=== PATIENT | male | born 1945 | race Two or more races ===

== ENCOUNTER 2016-05-13 19:24 | Emergency (ER) | payer OTHER ==
[~2016-05-13] VITALS: Ht 175.3 cm; Wt 106.6 kg
[~2016-05-13 19:24] MED LIST: LEVO500T3 PO; LISI-275 PO
[2016-05-13 20:22] LABS: Basophils # (auto) 0 uL; Basophils % (auto) 0.6 % (0.0-2.0); Eosinophils # (auto) 0.2 uL; Eosinophils % (auto) 2.3 % (0.0-7.0); Hematocrit 39.9 % (41.0-53.0); Hemoglobin 13.1 g/dL (13.5-17.5); Lymphocytes # (auto) 1.6 uL; Lymphocytes % (auto) 22.2 % (10.0-50.0); Mean Corpuscular Hemoglobin 30.6 pg (28.0-32.0); Mean Corpuscular Hgb Conc. 32.9 g/dL (32.0-36.0); Mean Corpuscular Volume 92.8 fL (80.0-100.0); Mean Platelet Volume 9.1 fL (7.4-10.4); Monocytes # (auto) 0.6 uL; Monocytes % (auto) 8.7 % (0.0-12.0); Neutrophils # (auto) 4.7 uL; Neutrophils % (auto) 66.2 % (37.0-80.0); Platelet Count (auto) 262 10^3/uL (140-450); Red Cell Distribution Width 14.2 % (11.6-16.0)
[2016-05-13 20:49] LABS: Albumin 3.5 g/dL (3.4-5.0); Anion Gap 10 (5-15); Aspartate Aminotransferase 10 U/L (15-37); Blood Urea Nitrogen 26 mg/dL (7-18); Calcium 8.6 mg/dL (8.5-10.1); Carbon Dioxide 27 mmol/L (21-32); Chloride 106 mmol/L (98-107); GFR African American 70 mL/min; GFR Non-African American 58 mL/min; Glucose 159 mg/dL (74-106); Potassium 3.8 mmol/L (3.5-5.1); Sodium 143 mmol/L (136-145)
[2016-05-13 20:52] LABS: Alkaline Phosphatase 85 U/L (45-117); Bilirubin, Total 0.3 mg/dL (0.2-1.0); Total Protein 7.6 g/dL (6.4-8.2)
[2016-05-14] MEDS ORDERED: predniSONE 20 MG TAB PO ONE (02:30)
[2016-05-14] MEDS ORDERED: IPRATROPIUM BROM 0.5 MG/2.5ML INH SOL NEB ONE (02:30)
[2016-05-14] MEDS ORDERED: ALBUTEROL SULF 2.5 MG/0.5ML(0.5%) NEB SOLN NEB ONE (02:30)
[2016-05-14 05:00] VITALS: BP 136/63
== END 2016-05-14 05:06 | disposition home or self-care (01) ==
LOC: ER 19:24
DX: J44.9 Chronic obstructive pulmonary disease, unspecified (principal); J45.901 Unspecified asthma with (acute) exacerbation; E11.9 Type 2 diabetes mellitus without complications; E78.5 Hyperlipidemia, unspecified; I10 Essential (primary) hypertension
CPT/HCPCS: 36415; 71020; 80053; 82962; 84484; 85025; 94640; 94761; 99285; J7512

== ENCOUNTER 2024-01-26 14:16 | Emergency (ER) | payer OTHER, MEDICAID ==
[~2024-01-26] VITALS: Ht 177.8 cm; Wt 91.0 kg
[~2024-01-26 14:16] MED LIST changes: -LEVO500T3 PO; +LEVO500T31 PO
[2024-01-26 15:00] VITALS: PULSE 60; RESP 13; O2SAT 95
--- NOTE | 2024-01-26 16:44 | ED.PDOC ---
History of Present Illness HPI Comments 78Y M with PMHx DM, HTN, HLD, and TIA presents to ED for chief complaint general weakness x2days. Additional symptoms include vertigo, posterior headache, one episode of diarrhea, and lightheadedness. Pt denies nausea, vomiting, chest pain, and SOB. Pt has never experienced these symptoms before and has steady gait. No known allergies. Chief Complaint: General Weakness Time Seen by MD: 16:22 Primary Care Provider: ORESTES Reviewed Notes: Nurses Notes, Medications, Allergies Allergies: Coded Allergies: NO KNOWN ALLERGIES (Unverified , 08/08/15) Home Meds Active Scripts Levofloxacin (Levaquin) 500 Mg Tab, 500 MG PO DAILY for 11 Days Prov:YAMILET HARRELL MD 08/11/15 Reported Medications Lisinopril (Lisinopril) 5 Mg Tab, 5 MG PO DAILY for 30 Days, MG 08/09/15 Information Source: Patient Mode of Arrival: Ambulatory Severity: Mild Timing: Days Duration: Since onset Past Medical History PAST MEDICAL HISTORY: DM, High Lipids, HTN, TIA Surgical History: Denies all surgeries Family History Family History: Unobtainable Social History Smoker: Non-Smoker Alcohol: Denies ETOH Use Drugs: Denies Drug Use Lives In: Home Constitutional: reports: weakness; denies: chills, diaphoresis, fatigue, fever, malaise, sweats, others EENTM: denies: blurred vision, double vision, ear bleeding, ear discharge, ear drainage, ear pain, ear ringing, eye pain, eye redness, hearing loss, mouth pain, mouth swelling, nasal discharge, nose bleeding, nose congestion, nose pain, photophobia, tearing, throat pain, throat swelling, voice changes, others Respiratory: denies: cough, hemoptysis, orthopnea, SOB at rest, shortness of breath, SOB with excertion, stridor, wheezing, others Cardiovascular: reports: lightheadedness; denies: chest pain, dizzy spells, diaphoresis, Dyspnea on exertion, edema, irregular heart beat, left arm pain, palpitations, PND, syncope, others Gastrointestinal: reports: diarrhea; denies: abdomen distended, abdominal pain, blood streaked bowels, constipated, dysphagia, difficulty swallowing, hematemesis, melena, nausea, poor appetite, poor fluid intake, rectal bleeding, rectal pain, vomiting, others Genitourinary: denies: burning, dysuria, flank pain, frequency, hematuria, incontinence, penile discharge, penile sore, pain, testicle pain, testicle swelling, urgency, others Neurological: reports: dizziness, headache; denies: fainting, left sided numbness, left sided weakness, numbness, paresthesia, pre-existing deficit, right sided numbness, right sided weakness, seizure, speech problems, tingling, tremors, weakness, others Musculoskeletal: denies: back pain, gout, joint pain, joint swelling, muscle pain, muscle stiffness, neck pain, others Allergic/Immunocompromised: denies: Difficulty Healing, Frequent Infections, Hi ves, Itching, others Hematologic/Lymphatic: denies: anemia, blood clots, easy bleeding, easy bruising, swollen glands, others Endocrine: denies: excessive hunger, excessive sweating, excessive thirst, excessive urination, flushing, intolerance to cold, intolerance to heat, unexplained weight gain, unexplained weight loss, others Psychiatric: denies: anxiety, bipolar disorder, depression, hopeless, panic disorder, schizophrenia, sleepless, suicidal, others All Other Systems: Reviewed and Negative Physical Exam General Appearance: No Apparent Distress, Normal HEENT: Normal ENT Inspection, PERRL/EOMI, Pharynx Normal, TMs Normal Neck: Full Range of Motion, Non-Tender, Normal, Normal Inspection Respiratory: Chest Non-Tender, Lungs Clear, No Accessory Muscle Use, No Respiratory Distress, Normal Breath Sounds Cardiovascular: No Edema, No JVD, No Murmur, No Gallop, Normal Peripheral Pulses, Regular Rate/Rhythm Breast Exam: Deferred Gastrointestinal: No Organomegaly, Non Tender, No Pulsatile Mass, Normal Bowel Sounds, Soft Genitalia: Deferred Pelvic: Deferred Rectal: Deferred Extremities: No calf tenderness, Normal capillary refill, Normal inspection, Normal range of motion, Non-tender, No pedal edema Musculoskeletal : Apperance: Normal Neurologic: Alert, flanger II-XII nml as Tested, Dizziness, No Motor Deficits, Normal Affect, Normal Mood, No Sensory Deficits Cerebellar Function: Ataxia Reflexes: Normal Skin: Dry, Normal Color, Warm Peripheral Pulses: 1+ carotid (R), 1+ carotid (L) Lymphatic: No Adenopathy Was a procedure done? Was a procedure done?: No EKG EKG : Pulse Rate (adult): 68 [place]: Normal Cardiac Rhythm: NSR Differential Dx Considerations may include: vertigo cerebellar infarct dehydration hypotension hypovolemia electrolyte imbalance anemia X-Ray, Labs, Meds, VS Vital Signs Date Time Temp Pulse Resp B/P (MAP) Pulse Ox O2 Delivery O2 Flow Rate FiO2 01/26/24 18:05 68 01/26/24 17:00 57 14 131/69 (89) 95 01/26/24 15:00 97.8 60 13 103/61 (75) 95 97.8 01/26/24 15:00 60 13 95 Room Air* 0 21 01/26/24 14:39 68 01/26/24 14:23 97.3 68 18 76/43 (54) 97 85/46 (59) Lab Test 01/26/24 17:24 Range/Units White Blood Count 4.8 4.4-10.8 10^3/uL Red Blood Count 4.46 L 4.5-5.90 10^6/uL Hemoglobin 13.8 13.5-17.5 g/dL Hematocrit 41.3 41.0-53.0 % Mean Corpuscular Volume 92.5 80.0-100.0 fL Mean Corpuscular Hemoglobin 30.8 28.0-32.0 pg Mean Corpuscular Hemoglobin Concent 33.3 32.0-36.0 g/dL Red Cell Distribution Width 13.5 11.8-14.3 % Platelet Count 184 140-450 10^3/uL Mean Platelet Volume 9.4 6.9-10.8 fL Neutrophils (%) (Auto) 56.6 37.0-80.0 % Lymphocytes (%) (Auto) 32.0 10.0-50.0 % Monocytes (%) (Auto) 7.8 0.0-12.0 % Eosinophils (%) (Auto) 3.1 0.0-7.0 % Basophils (%) (Auto) 0.5 0.0-2.0 % Neutrophils # (Auto) 2.7 1.6-8.6 10 ^3/uL Lymphocytes # (Auto) 1.5 0.4-5.4 10 ^3/uL Monocytes # (Auto) 0.4 0-1.3 10 ^3/uL Eosinophils # (Auto) 0.1 0-0.8 10 ^3/uL Basophils # (Auto) 0 0-0.2 10 ^3/uL Nucleated Red Blood Cells 0.0 % Sodium Level 141 136-145 mmol/L Potassium Level 4.3 3.5-5.1 mmol/L Chloride Level 109 H 98-107 mmol/L Carbon Dioxide Level 27 20-31 mmol/L Anion Gap 5 5-15 Blood Urea Nitrogen 22 9-23 mg/dL Creatinine 1.26 0.700-1.30 mg/dL Glomerular Filtration Rate Calc 58 >90 mL/min BUN/Creatinine Ratio 17.5 10.0-20.0 Serum Glucose 105 74-106 mg/dL Calcium Level 9.1 8.7-10.4 mg/dL Magnesium Level 1.6 1.6-2.6 mg/dL Total Bilirubin 0.5 0.2-1.0 mg/dL Aspartate Amino Transferase (AST) 14 13-40 U/L Alanine Aminotransferase (ALT) 10 7-40 U/L Alkaline Phosphatase 89 46-116 U/L Total Protein 6.3 5.7-8.2 g/dL Albumin 3.9 3.2-4.8 g/dL Current Medications Medications (Trade) Dose Ordered Sig/Wanda Route Start Time Stop Time Status Last Admin Sodium Chloride 1,000 ml @ 150 mls/hr Q6H40M ONCE IV 01/26/24 16:30 01/26/24 23:09 01/26/24 17:08 Meclizine HCl (Antivert Tablet) 50 mg ONCE ONCE PO 01/26/24 16:30 01/26/24 16:33 DC 01/26/24 17:07 [place] [id number] Ph: [phone] DIAGNOSTIC IMAGING Diagnostic Imaging Report : [id number] Signed PATIENT: SAAD RIVAS ACCT: [id number] UNIT: [id number] : 1945 LOC: ER ROOM / BED: / AGE / SEX: 78 / M ADM STATUS: REG ER SERVICE 1630 ORDERING PHYSICIAN: MALCOLM ADLER MD PROCEDURE(s): CXR2 - CHEST TWO VIEWS ROUTINE REASON: Vertigo ORDER NUMBER(s): [id number], ACCESSION NUMBER(s): [id number] XY CHEST TWO VIEWS ROUTINE CLINICAL HISTORY: Vertigo COMPARISON: None TECHNIQUE: Frontal and lateral view of the chest was obtained FINDINGS: Lines and Tubes: None Lungs: No focal consolidation. Low lung volumes. Pleura: Blunted left costophrenic angle.. No pneumothorax. Cardiomediastinal contours: Unremarkable Bones: No acute osseous abnormality. IMPRESSION: 1. Blunted left costophrenic angle may be due to trace effusion versus infiltrate / atelectasis. 2. Low lung volumes with bronchovascular crowding. HS:Y ATED BY: VIGNESH GARCIA DO DICTATED DATE/TIME: 01/26/241711 SIGNED BY: VIGNESH GARCIA DO SIGNED DATE/TIME: 01/26/241711 CC: [place] [id number] Ph: [phone] DIAGNOSTIC IMAGING Diagnostic Imaging Report : [id number] Signed PATIENT: SAAD RIVAS ACCT: [id number] UNIT: [id number] : 1945 LOC: ER ROOM / BED: / AGE / SEX: 78 / M ADM STATUS: REG ER SERVICE ORDERING PHYSICIAN: MALCOLM ADLER MD PROCEDURE(s): HWOCT - HEAD WITHOUT CONTRAST REASON: Vertigo occipital headache ORDER NUMBER(s): [id number], ACCESSION NUMBER(s): [id number] EXAM: CT HEAD WITHOUT CONTRAST HISTORY: Vertigo occipital headache COMPARISON: None TECHNIQUE: Axial images of the head were obtained and reformatted in coronal and sagittal planes. All CT scans at this medical facility are performed using dose modulation techniques as appropriate to a performed exam including the following: Automated exposure control was utilized; adjustment of the MA and/or KV according to patient size; and use of iterative reconstruction technique. CT Dose: CTDI volume is 61 mGy. Dose-length product is 1098 mGy*cm FINDINGS: There is a moderate size area of encephalomalacia in the right cerebellum compatible with chronic infarct. There is no evidence of acute intracranial hemorrhage, mass, mass effect midline shift. There is no hydrocephalus or extra- axial fluid collection. The supratentorial adams-white matter differentiation in the There is a retention cyst in the left maxillary sinus. The calvarium is intact. IMPRESSION: 1. No acute intracranial process. 2. 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 HS:Y ATED BY: CHAITANYA BAH MD DICTATED DATE/TIME: 01/26/241657 SIGNED BY: CHAITANYA BAH MD SIGNED DATE/TIME: 01/26/241657 CC: X-Ray, Labs, Meds, VS Comment Course in the emergency department eventful patient came in because of lightheaded for the past two days seems to lose his memory and he has vertigo The chest x-ray shows possibly left lower lobe pneumonia of to be atelectasis could be pulmonary effusion EKG shows normal sinus rhythm at [address] head shows chronic cerebellar infarction CBC is normal CMP CMP IS NORMAL MAGNESIUM 1.6 PATIENT WILL BE ADMITTED FOR FURTHER CARE Time of 1ST Reevaluation: 16:52 Reevaluation 1ST: Unchanged Time of 2ND Reevaluation: 18:23 Reevaluation 2ND: Unchanged Patient Education/Counseling: Diagnosis, Treatment, Prognosis Family Education/Counseling: Diagnosis, Treatment, Prognosis, No Family Present Departure 1 Departure Time of Disposition: 18:24 Impression: Primary Impression: TIA (transient ischemic attack) Additional Impressions: 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 Left lower lobe pneumonia Qualified Codes: J18.9 - Pneumonia, unspecified organism Disposition: ADMITTED INPATIENT Admit to: [facility] Condition: Fair Critical Care Note Critical Care Time?: No Stability Stability form required: Yes Unstable for transfer: Telemetry monitoring (Telemetry monitoring required), Requires medication (Requires Med for stabilization) Heart Score Heart Score: Heart Score Response (Comments) Value History Slightly Suspicious 0 EKG Normal 0 Age >65 2 Risk Factors 1 or 2 risk factors 1 Troponin N/A 0 Total 3 I personally scribed for MALCOLM ADLER MD ([email or web address]) on 01/26/24 at 16:44. Electronically submitted by Victorina Roque ([email or web address]). I personally scribed for MALCOLM ADLER MD ([email or web address]) on 01/26/24 at 17:50. E lectronically submitted by Arielle Akbar ([email or web address]). MALCOLM ADLER MD Jan 26, 2024 16:44
--- NOTE | 2024-01-26 16:59 | DVH ---
EXAM: CT HEAD WITHOUT CONTRAST HISTORY: Vertigo occipital headache COMPARISON: None TECHNIQUE: Axial images of the head were obtained and reformatted in coronal and sagittal planes. All CT scans at this medical facility are performed using dose modulation techniques as appropriate t o a performed exam including the following: Automated exposure control was utilized; adjustment of th e MA and/or KV according to patient size; and use of iterative reconstruction technique. CT Dose: CTDI volume is 61 mGy. Dose-length product is 1098 mGy*cm FINDINGS: There is a moderate size area of encephalomalacia in the right cerebellum compatible with chronic inf arct. There is no evidence of acute intracranial hemorrhage, mass, mass effect midline shift. There i s no hydrocephalus or extra-axial fluid collection. The supratentorial adams-white matter differentia tion in the There is a retention cyst in the left maxillary sinus. The calvarium is intact. IMPRESSION: 1. No acute intracranial process. 2. 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 HS:Y
[2024-01-26] MEDS: MECLIZINE HCL 25 MG TAB PO ONE (17:07)
[2024-01-26] MEDS: SODIUM CHLORIDE 0.9% 1,000 ML IV ONE (17:08)
--- NOTE | 2024-01-26 17:15 | DVH ---
XY CHEST TWO VIEWS ROUTINE CLINICAL HISTORY: Vertigo COMPARISON: None TECHNIQUE: Frontal and lateral view of the chest was obtained FINDINGS: Lines and Tubes: None Lungs: No focal consolidation. Low lung volumes. Pleura: Blunted left costophrenic angle.. No pneumothorax. Cardiomediastinal contours: Unremarkable Bones: No acute osseous abnormality. IMPRESSION: 1. Blunted left costophrenic angle may be due to trace effusion versus infiltrate / atelectasis. 2. Low lung volumes with bronchovascular crowding. HS:Y
[2024-01-26 17:50] LABS: Basophils # (auto) 0 10 ^3/uL (0-0.2); Basophils % (auto) 0.5 % (0.0-2.0); Eosinophils # (auto) 0.1 10 ^3/uL (0-0.8); Eosinophils % (auto) 3.1 % (0.0-7.0); Hematocrit 41.3 % (41.0-53.0); Hemoglobin 13.8 g/dL (13.5-17.5); Lymphocytes # (auto) 1.5 10 ^3/uL (0.4-5.4); Mean Corpuscular Hemoglobin 30.8 pg (28.0-32.0); Mean Corpuscular Hgb Conc. 33.3 g/dL (32.0-36.0); Mean Corpuscular Volume 92.5 fL (80.0-100.0); Monocytes # (auto) 0.4 10 ^3/uL (0-1.3); Monocytes % (auto) 7.8 % (0.0-12.0); Neutrophils # (auto) 2.7 10 ^3/uL (1.6-8.6); Neutrophils % (auto) 56.6 % (37.0-80.0); Platelet Count (auto) 184 10^3/uL (140-450); Red Blood Cells 4.46 10^6/uL (4.5-5.90); Red Cell Distribution Width 13.5 % (11.8-14.3); White Blood Cell 4.8 10^3/uL (4.4-10.8)
[2024-01-26 18:09] LABS: Alanine Aminotransferase 10 U/L (7-40); Albumin 3.9 g/dL (3.2-4.8); Alkaline Phosphatase 89 U/L (46-116); Anion Gap 5 (5-15); Aspartate Aminotransferase 14 U/L (13-40); BUN/Creatinine Ratio 17.5 (10.0-20.0); Blood Urea Nitrogen 22 mg/dL (9-23); Calcium 9.1 mg/dL (8.7-10.4); Carbon Dioxide 27 mmol/L (20-31); Glucose 105 mg/dL (74-106); Potassium 4.3 mmol/L (3.5-5.1); Sodium 141 mmol/L (136-145)
[2024-01-26 18:10] LABS: Bilirubin, Total 0.5 mg/dL (0.2-1.0); Total Protein 6.3 g/dL (5.7-8.2)
[2024-01-26 18:12] LABS: Chloride 109 mmol/L (98-107); Magnesium 1.6 mg/dL (1.6-2.6)
[2024-01-26] MEDS: cefTRIAXone 1GM/50ML D5W 50 ML IV ONE (18:56)
[2024-01-26 19:30] VITALS: PULSE 59; RESP 15; TEMP 97.9; O2SAT 97
[2024-01-26 21:02] LABS: Urine Bacteria FEW /hpf (None Seen); Urine Blood Negative /uL (Negative); Urine Clarity Clear (Clear); Urine Color Light-Yellow (Yellow); Urine Hyaline Cast FEW /lpf (0 - 2); Urine Protein, UAD Negative (Negative); Urine Specific Gravity 1.008 (1.001-1.035); Urine Urobilinogen Normal (Negative); Urine WBC 2 /hpf (0 - 3)
--- NOTE | 2024-01-26 22:02 | DVHINCON2 ---
RANDALL DIAZ NP 01/26/242: Date of service: Jan 26, 2024 Referring Physician VITOR Reason for Consultation Medical management History of Present Illness 78-year-old male Past medical history of DM, hypertension, hyperlipidemia, TIA presented with complaints of dizziness x 1 day. On arrival to the emergency department the patient was found to be hypotensive with a blood pressure 76/43. Patient endorsed he had been having diarrhea and headache that resolved. There are no complaints of nausea or vomiting. While in the emergency department CBC was unremarkable, CMP was unremarkable, UA was negative. CT head had no acute findings. CXR Presented with atelectasis versus pneumonia versus small plural effusion. Patient Oxygen saturation has been stable and 96% on room air. Patient currently denies dizziness States he feels much better after receiving IV fluid hydration. Denies fevers, chills, Unilateral deficits, Shortness of breath, chest pain, nausea, vomiting. Past Medical History DM, hypertension, hyperlipidemia, TIA Family History: Patient reports no known family medical history. Allergies: Coded Allergies: NO KNOWN ALLERGIES (Unverified , 08/08/15) Home Meds Active Scripts Levofloxacin (Levaquin) 500 Mg Tab, 500 MG PO DAILY for 11 Days Prov:YAMILET HARRELL MD 08/11/15 Reported Medications Lisinopril (Lisinopril) 5 Mg Tab, 5 MG PO DAILY for 30 Days, MG 08/09/15 Review of Systems 10 systems reviewed and negative except as per HPI Vital Signs Vital Signs Date Time Temp Pulse Resp B/P (MAP) Pulse Ox O2 Delivery O2 Flow Rate FiO2 01/26/24 19:30 97.9 68 15 118/83 (95) 97 97.9 01/26/24 15:00 Room Air* 0 21 Physical Exam GENERAL: Patient appearing stated age, in no acute distress. HEENT: Pupils equal and reactive to light and accommodation. Extraocular muscles intact. Mucous membranes moist. Conjunctivae pink. Anicteric sclerae. LUNGS: Bilateral air entry. No wheezes, rhonchi or rales. HEART: Regular rate and rhythm. Normal S1 and S2. ABDOMEN: BS normoactive, soft, nontender, and nondistended. No CVA tenderness. EXTREMITIES: No clubbing, cyanosis, edema. No calf tenderness. Pedal pulses 2+. NEUROLOGICAL: The patient is alert and oriented times 3. CN II-XII intact. No focal deficits on gross sensory or motor examination. Labs/Diagnostic Data Labs Test 01/26/24 17:24 01/26/24 16:20 Range/Units White Blood Count 4.8 4.4-10.8 10^3/uL Red Blood Count 4.46 L 4.5-5.90 10^6/uL Hemoglobin 13.8 13.5-17.5 g/dL Hematocrit 41.3 41.0-53.0 % Mean Corpuscular Volume 92.5 80.0-100.0 fL Mean Corpuscular Hemoglobin 30.8 28.0-32.0 pg Mean Corpuscular Hemoglobin Concent 33.3 32.0-36.0 g/dL Red Cell Distribution Width 13.5 11.8-14.3 % Platelet Count 184 140-450 10^3/uL Mean Platelet Volume 9.4 6.9-10.8 fL Neutrophils (%) (Auto) 56.6 37.0-80.0 % Lymphocytes (%) (Auto) 32.0 10.0-50.0 % Monocytes (%) (Auto) 7.8 0.0-12.0 % Eosinophils (%) (Auto) 3.1 0.0-7.0 % Basophils (%) (Auto) 0.5 0.0-2.0 % Neutrophils # (Auto) 2.7 1.6-8.6 10 ^3/uL Lymphocytes # (Auto) 1.5 0.4-5.4 10 ^3/uL Monocytes # (Auto) 0.4 0-1.3 10 ^3/uL Eosinophils # (Auto) 0.1 0-0.8 10 ^3/uL Basophils # (Auto) 0 0-0.2 10 ^3/uL Nucleated Red Blood Cells 0.0 % Sodium Level 141 136-145 mmol/L Potassium Level 4.3 3.5-5.1 mmol/L Chloride Level 109 H 98-107 mmol/L Carbon Dioxide Level 27 20-31 mmol/L Anion Gap 5 5-15 Blood Urea Nitrogen 22 9-23 mg/dL Creatinine 1.26 0.700-1.30 mg/dL Glomerular Filtration Rate Calc 58 >90 mL/min BUN/Creatinine Ratio 17.5 10.0-20.0 Serum Glucose 105 74-106 mg/dL Calcium Level 9.1 8.7-10.4 mg/dL Magnesium Level 1.6 1.6-2.6 mg/dL Total Bilirubin 0.5 0.2-1.0 mg/dL Aspartate Amino Transferase (AST) 14 13-40 U/L Alanine Aminotransferase (ALT) 10 7-40 U/L Alkaline Phosphatase 89 46-116 U/L Total Protein 6.3 5.7-8.2 g/dL Albumin 3.9 3.2-4.8 g/dL Urine Color Light-yellow Yellow Urine Clarity Clear Clear Urine pH 5.0 5.0-9.0 Urine Specific [place] 1.008 1.001-1.035 Urine Protein Negative Negative Urine Ketones Negative Negative Urine Blood Negative Negative /uL Urine Nitrite Negative Negative Urine Bilirubin Negative Negative Urine Urobilinogen Normal Negative mg/dL Urine Leukocyte Esterase Negative Negative /uL Urine RBC None seen 0 - 3 /hpf Urine WBC 2 0 - 3 /hpf Urine Squamous Epithelial Cells None seen <5 /hpf Urine Bacteria Few H None Seen /hpf Urine Hyaline Casts Few 0 - 2 /lpf Urine Glucose Normal Normal mg/dL Assessment -Dizziness -Hypotension -Dehydration Plan/Recommendation Patient seen and evaluated ER bed 19. After receiving IV fluid hydration p atient's blood pressure has stabilized. Patient denies dizziness and is requesting to be discharged home. Patient was directly observed for two hours. Orthostatic vital signs remains stable with no difference in sitting and lying position. At baseline patient is non-ambulatory uses wheelchair at home. I have contacted the patient son via telephone and discussed clinical findings a nd current patient status. Patient will be discharged home. Case management has been consulted to set up home safety evaluation and follow up with PCP. Both the patient and his son verbalized understanding the plan of care and agree. Patient was advised to maintain oral fluid hydration. Patient was provided with strict ER precautions included but not limited to headaches, dizzi ness, unilateral deficits, shortness of breath, chest pain, nausea, vomiting, diarrhea, blood in emesis and blood in stool. Plan of care was discussed detail with supervising physician Dr. Reynolds, Who agrees with plan of care. Plan discussed with: Patient, Son (Via telephone) ARMANDO NG MD 01/28/24 1631: Family History: Patient reports no known family medical history. Allergies: Coded Allergies: NO KNOWN ALLERGIES (Unverified , 6/30/16) Home Meds Active Scripts Levofloxacin (Levaquin) 500 Mg Tab, 500 MG PO DAILY for 11 Days Prov:YAMILET HARRELL MD 08/11/15 Reported Medications Lisinopril (Lisinopril) 5 Mg Tab, 5 MG PO DAILY for 30 Days, MG 08/09/15 Additional Comments Additional Comments Additional Comments Patient's chart is reviewed and discussed with the nurse practitioner. Patient is seen and evaluated by nurse practitioner. I agree with the nurse practitioner's evaluation, documentation, assessment and care plan as outlined. RANDALL DIAZ NP Jan 26, 2024 22:02 ARMANDO NG MD Jan 28, 2024 16:31
[2024-01-27] VITALS: BP 134/66; PULSE 57; RESP 13; O2SAT 96
--- NOTE | 2024-01-27 08:16 | ECG ---
[facility] Test Date: 2024-01-26 Test Time: 14:39:03 Pat Name: SAAD JOSE Department: ER Room: Gender: M [employer]: GP : 1945 Requested By: MALCOLM ADLER Order Number: [id number] Reading MD: Edwar Finley Measurements Intervals [place] Rate: 68 P: 0 KS: 0 QRS: -3 QRSD: 94 T: -12 QT: 419 QTc: 446 Interpretive Statements Junctional rhythm Low voltage, precordial leads Abnormal R-wave progression, early transition Borderline repolarization abnormality Electronically Signed On 01-28-2024 10:26:00 PST by Edwar Finley Please click the below link to view image of tracing.
== END 2024-01-27 00:46 | disposition home or self-care (01) ==
LOC: ER 14:16
DX: G45.9 Transient cerebral ischemic attack, unspecified (principal); J18.9 Pneumonia, unspecified organism; R42 Dizziness and giddiness; I10 Essential (primary) hypertension; E11.9 Type 2 diabetes mellitus without complications; E78.5 Hyperlipidemia, unspecified; Z79.899 Other long term (current) drug therapy
CPT/HCPCS: 36415; 70450; 71046; 80053; 81001; 83735; 85025; 93005; 96361; 96365; 99285; J0696; J7030; J8597